=== PATIENT | female | born 2000 | race Caucasian/White ===

== ENCOUNTER 2019-12-05 18:39 | Emergency (ER) | payer OTHER, SELFPAY ==
--- NOTE | ~2019-12-05 | XR_ITS ---
EXAMINATION: XR foot LT min 3V DATE: 12/05/2019 19:06 INDICATION: Left foot pain TECHNIQUE: Dorsoplantar, lateral, and 2 oblique views of the left foot were obtained. COMPARISON: 07/03/2015 FINDINGS: There is no fracture, dislocation, or subluxation. 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 Bone alignment is normal. The soft tissues are unremarkable. IMPRESSION: 1. No acute osseous abnormality. Reviewed, dictated and finalized at location A.
[2019-12-05 18:46] VITALS: BP 121/64; PULSE 66; RESP 16; TEMP 36.9; O2SAT 99
--- NOTE | 2019-12-05 18:52 | ED.GENADULT ---
HPI - General Adult General Chief complaint: Extremity Injury, Lower Stated complaint: left foot injury Time Seen by Provider: 12/05/19 18:52 Source: patient and RN notes reviewed Limitations: no limitations History of Present Illness HPI narrative: 18-year-old female presents today with complaints of left foot pain with intermittent swelling for the past 7 days. Sally says dorsal LT foot started hurting after running on 11/28/19 without known injury. Ibuprofen, last on 12/04/19 without some relief. Hurts to bear weight. No radiation of pain. No numbness, tingling, or loss of mobility. Exacerbating factor applying weight. Denies inability to bear weight. Denies discoloration. Denies suspect foreign body. Denies being , LMP 3 years ago due to being on Depo Provera. The patient reports she have not been diagnosed with COVID-19. The patient reports she is not waiting for the results of a COVID-19 lab test. The patient reports she do not have fever, chills, weakness, or fatigue. The patient reports she do not have a new or worsening cough or shortness of breath. Denies chest pain. The patient reports she do not have any rhinorrhea, congestion, sore throat, loss of taste, nausea, vomiting, abdominal pain, and diarrhea. Tolerating po intake well. Denies recent traveling. Denies concerns for COVID-19 or exposures been home with limited outdoor exposure except for essential household needs, student, and return home. At this time, patient is not suspected of having COVID-19. Some parts of this dictation were generated by voice recognition software and may contain typographical and/or grammatical inaccuracies. Related Data Home Medications Medication Instructions Recorded Confirmed medroxyprogesterone 150 mg IM [id number] 12/05/19 12/05/19 mirtazapine 30 mg PO DAILY 12/05/19 12/05/19 Allergies Allergy/AdvReac Type Severity Reaction Status Date / Time No Known Drug Allergies Allergy Unknown Unknown Verified 12/05/19 18:53 Review of Systems Review of Systems: Narrative: CONSTITUTIONAL: Denies fever, chills, sweats. EYES: Denies visual changes, redness, discharge. ENT: Denies rhinorrhea, congestion, sore throat, otalgia. CARDIOVASCULAR: Denies chest pain, palpitations, edema. RESPIRATORY: Denies dyspnea, wheezing, cough. GASTROINTESTINAL: Denies abdominal pain, nausea, vomiting, diarrhea. GENITOURINARY: Denies dysuria, hematuria, abnormal discharge. SKIN: Denies rash or itching. MUSCULOSKELETAL: Denies acute back pain or myalgia. Complains of pain and intermittent swelling to left foot. NEUROLOGIC: Denies numbness or focal weakness. PSYCHIATRIC: Denies anxiety or depression. All other systems reviewed are negative, except as documented in HPI and below. [facility] Past Medical History Medical History (Updated 12/05/19 @ 19:31 by ISAAC Frankel) Anxiety Shortened frenulum of lip Surgical History Surgical History (Updated 12/05/19 @ 19:06 by ISAAC Frankel) No significant past surgical history Family History Family History (Updated 12/05/19 @ 19:07 by ISAAC Frankel) Father Diabetes mellitus Mother Hypertension Social History Social History (Updated 12/05/19 @ 19:53 by ISAAC Frankel) Smoking status: Never smoker Tobacco type: cigarettes Second hand tobacco smoke exposure: No Alcohol intake: current Substance use: never Living arrangements: with family Occupation/Education: student Gender identity (if verbalized by the patient): Female Sexual Orientation (if Verbalized by the Patient): Straight or Heterosexual Comments At time of signature, agree with nurse past medical, surgical, social, and family history. There is no relevant family history pertinent to the presenting complaint. Exam Narrative: Exam Narrative: GENERAL: This is a well-nourished, well-developed patient, in no apparent distress. Ambulates with a limp favoring left lower ex
== END 2019-12-05 19:35 | disposition home or self-care (01) ==
PROVIDERS: Emergency Provider Nurse Practitioner Family; PCP Family Medicine
DX: S96.912A Strain of unspecified muscle and tendon at ankle and foot level, left foot, initial encounter (principal); X58.XXXA Exposure to other specified factors, initial encounter
CPT/HCPCS: 73630; 99203; G0463

== ENCOUNTER 2020-05-18 18:34 | Emergency (ER) | payer OTHER, SELFPAY ==
--- NOTE | ~2020-05-18 | CT_ITS ---
EXAMINATION: CT abdomen pelvis w con DATE: 05/18/2020 19:49 INDICATION: Right lower quadrant pain TECHNIQUE: Computed tomography (CT) of the abdomen and pelvis was performed with 100 cc Omnipaque 350 intravenous contrast. The dose-length product was 224.09 mGy-cm. Automated exposure control and iter ative reconstruction technique were employed. COMPARISON: None. FINDINGS: Lung bases are unremarkable. Heart size normal. No significant pleural or pericardial effus ion. No significant vascular abnormality. No lymphadenopathy. Fatty infiltration of the liver. Gallbladder is contracted. The spleen, pancreas, adrenal glands and kidneys are unremarkable. Normal appendix. There is a 3 cm right ovarian cyst. Small amount of free f luid in the pelvis. No acute osseous abnormality. IMPRESSION: 1. 3 cm right ovarian cyst. Trace free fluid in the pelvis, physiologic. Reviewed, dictated and finalized at location A. OR REACTOR OPERATOR
[2020-05-18 18:51] VITALS: BP 104/62; PULSE 76; RESP 12; TEMP 36.3; O2SAT 100
--- NOTE | 2020-05-18 19:19 | ED.GENADULT ---
HPI - General Adult General Chief complaint: Abdominal Pain Stated complaint: abdominal pain Time Seen by Provider: 05/18/20 18:57 Source: patient and family Mode of arrival: ambulatory Limitations: no limitations History of Present Illness HPI narrative: Patient is a 19-year-old female who presents with periumbilical abdominal pain for the last day with some associated nausea patient denies similar occurrence in the past pain worsened today as a sharp stabbing pain patient denies vomiting urinary vaginal or bowel habit changes. Patient has not had anything for symptoms Related Data Home Medications Medication Instructions Recorded Confirmed medroxyprogesterone 150 mg IM [id number] 12/05/19 12/05/19 mirtazapine 30 mg PO DAILY 12/05/19 12/05/19 Allergies Allergy/AdvReac Type Severity Reaction Status Date / Time No Known Drug Allergies Allergy Unknown Unknown Verified 12/05/19 18:53 Review of Systems Review of Systems: All systems reviewed & are unremarkable except as noted in HPI and below PMFSH Past Medical History Medical History Anxiety Shortened frenulum of lip Surgical History Surgical History No significant past surgical history Family History Family History (Updated 12/05/19 @ 19:07 by ISAAC Frankel) Father Diabetes mellitus Mother Hypertension Social History Social History Smoking status: Never smoker Tobacco type: cigarettes Second hand tobacco smoke exposure: No Alcohol intake: current Substance use: never Gender identity (if verbalized by the patient): Female Exam Narrative: Exam Narrative: GENERAL: Well-appearing, well-nourished, and in no acute distress. HEAD: Normocephalic, atraumatic. EYES: PERRLA and EOMI. ENT: Nares clear, no rhinorrhea or epistaxis. Mucous membranes moist. CHEST: Clear to auscultation. No respiratory distress. No wheezes rales or rhonchi HEART: Regular rate and rhythm. No murmur heard. Normal peripheral pulses. ABDOMEN: Soft, periumbilical and right lower quadrant pain on palpation, nondistended EXTREMITIES: Normal range of motion. No edema. SKIN: Warm, dry, no rash. NEURO: No focal deficits. Alert and oriented x3. PSYCH: Normal mood and affect. Course Course Emergency Course: Patient evaluated in the emergency department with blood work and imaging found to have a right-sided ovarian cyst as the likely etiology of her discomfort could also still have other etiologies such as gastritis or other viral syndrome. Patient will follow with gynecology mother will help facilitate this patient provided with reasons to return and is felt appropriate for outpatient reevaluation Vital Signs Vital signs: Vital Signs Temperature 97.4 F L 05/18/20 18:51 Pulse Rate 76 05/18/20 18:51 Respiratory Rate 12 05/18/20 18:51 Blood Pressure 104/62 05/18/20 18:51 Pulse Oximetry 100 05/18/20 18:51 Temperature 97.4 F L 05/18/20 18:51 Pulse Rate 76 05/18/20 18:51 Respiratory Rate 12 05/18/20 18:51 Blood Pressure 104/62 05/18/20 18:51 Pulse Oximetry 100 05/18/20 18:51 Medical Decision Making [facility] Narrative Medical decision making narrative: Patient presented with abdominal pain nontoxic-appearing no distress at this time has been hydrated medicated in the emergency department found to have ovarian cyst will follow with gynecology for further evaluation has been provided with reasons to return Vital Signs Vital Signs: Vital Signs Temperature 97.4 F L 05/18/20 18:51 Pulse Rate 76 05/18/20 18:51 Respiratory Rate 12 05/18/20 18:51 Blood Pressure 104/62 05/18/20 18:51 Pulse Oximetry 100 05/18/20 18:51 Temperature 97.4 F L 05/18/20 18:51 Pulse Rate 76 05/18/20 18:51 Respiratory Rate 12 05/18/20 18:51 Blood Pressure 104/62 03/11
[2020-05-18 19:24] LABS: Basophils Percent Auto 0.3 % (0.2-1.2); Eosinophils Absolute Auto 0.1 K/mm3 (0-0.3); Eosinophils Percent Auto 0.5 % (0-4.4); Hematocrit 41.4 % (37.0-47.0); Hemoglobin 14.2 g/dL (12.0-15.0); Immature Granulocyte Absolute 0.03 K/mm3 (0.00-0.031); Immature Granulocyte Percent A 0.3 % (0-0.5); Lymphocytes Absolute Auto 1.05 K/mm3 (0.9-3.2); Mean Corpuscular HGB Conc 34.3 g/dl (32-36); Mean Corpuscular Hemoglobin 32.1 pg (26-34); Mean Corpuscular Volume 93.7 fl (80-100); Mean Platelet Volume 10.4 fl (7.4-10.4); Monocytes Absolute Auto 0.6 K/mm3 (0.1-0.6); Monocytes Percent Auto 5.6 % (2.6-8.5); Neutrophils Absolute Auto 8.7 K/mm3 (1.3-6.7); Neutrophils Percent Auto 83.3 % (45.5-73.1); Platelet Count Result 224 k/mm3 (150-375); Red Blood Count 4.42 M/mm3 (4.2-5.4); Red Cell Distribution Width 12.4 % (11.5-14.5); White Blood Count 10.5 K/mm3 (4.5-10.0)
[2020-05-18 19:25] LABS: Add Urine Microscopic? YES; Appearance Urine Clear (Clear); Bilirubin Urine Negative (Negative); Blood Urine 1+ (Negative); Color Urine Straw (Yellow); Glucose Urine UA Negative (Negative); Ketones Urine Negative (Negative); Leukocyte Esterase Ur Negative LEU/UL (Negative); Mucus Urine Rare /lpf; Nitrate Urine Negative (Negative); Protein Urine Negative (Negative); RBC Urine 0-2 /hpf (0-2); Specific Grav Ur 1.009 (1.001-1.035); Squamous Epithelial Cell Urine Rare /hpf (Few); Urobilinogen Urine Negative mg/dL (<2.0); WBC Urine 0-3 /hpf
[2020-05-18 19:30] VITALS: BP 103/53; PULSE 69; RESP 16; O2SAT 100
[2020-05-18] MEDS: SODIUM CHLORIDE 0.9% IV 1,000 ML 999 ML IV CONT (19:40)
[2020-05-18 19:43] LABS: Estimated CRCL calculation 118 ml/min; Estimated Glomerular Filt Rate > 60
[2020-05-18 20:00] VITALS: BP 116/54; PULSE 77; RESP 16; O2SAT 100
[2020-05-18] MEDS: ONDANSETRON INJ 4 MG/2 ML VIAL IV PUSH (20:00)
[2020-05-18] MEDS: HYOSCYAMINE SULFATE 0.125 MG TABLET PO (20:00)
[2020-05-18] MEDS: KETOROLAC 30 MG/ML VIAL (*BKC) IV PUSH (20:34)
== END 2020-05-18 20:30 | disposition home or self-care (01) ==
PROVIDERS: Emergency Provider Emergency Medicine; PCP Family Medicine
DX: N83.201 Unspecified ovarian cyst, right side (principal); F41.9 Anxiety disorder, unspecified
CPT/HCPCS: 36415; 74177; 81001; 81025; 85025; 85055; 96361; 96374; 96375; 99284; A9270; J0131; J1885; J2405; J7030; Q9967

== ENCOUNTER 2020-06-12 11:20 | Emergency (ER) | payer OTHER, SELFPAY ==
--- NOTE | ~2020-06-12 | XR_ITS ---
EXAMINATION: XR ankle LT min 3V DATE: 06/12/2020 11:47 INDICATION: Generalized left ankle pain post twisting injury one day prior TECHNIQUE: Anteroposterior, oblique, mortise, and lateral views of the left ankle were obtained. COMPARISON: Left foot radiograph dated 12/05/2019 FINDINGS: Alignment is normal. No fracture. Joint spaces are well maintained. No ankle joint effusion. The so ft tissues are unremarkable. IMPRESSION: 1. Negative left ankle radiographs. Reviewed, dictated and finalized at location B.
[2020-06-12 11:30] VITALS: BP 114/64; PULSE 80; RESP 16; TEMP 37.6; O2SAT 97
--- NOTE | 2020-06-12 11:35 | ED.LOWEXIN ---
HPI - Extremity Injury (Lower) General Chief Complaint: Extremity Injury, Lower Stated Complaint: left ankle injury Time Seen by Provider: 06/12/20 11:35 Source: patient and RN notes reviewed History of Present Illness HPI Narrative: Patient is a 19-year-old female who presents the urgent care with complaints of left ankle pain and swelling. Patient states that she slipped off a porch approximately 2 foot tall and onto the grass yesterday. Patient states that it is more painful to bear weight. Patient states she has been elevating and using ice. Denies of any old fractures to the left ankle. No other acute complaints. No acute distress noted. Patient aware of the plan of care. Some parts of this dictation were generated by voice recognition software and may contain typographical and/or grammatical inaccuracies. Related Data Home Medications Medication Instructions Recorded Confirmed medroxyprogesterone 150 mg IM [id number] 12/05/19 06/12/20 fluoxetine 20 mg PO DAILY 06/12/20 06/12/20 Allergies Allergy/AdvReac Type Severity Reaction Status Date / Time No Known Drug Allergies Allergy Unknown Unknown Verified 06/12/20 11:30 Review of Systems Review of Systems: Narrative: CONSTITUTIONAL: Denies fever, chills, or sweats. EYES: Denies visual changes, redness, or discharge. ENT: Denies rhinorrhea, congestion, sore throat, or otalgia. CARDIOVASCULAR: Denies chest pain, palpitations, or edema. RESPIRATORY: Denies cough or dyspnea. GASTROINTESTINAL: Denies abdominal pain, nausea, vomiting, or diarrhea. GENITOURINARY: Denies dysuria or hematuria. SKIN: Denies rash or itching. MUSCULOSKELETAL: Reports of left ankle pain and swelling NEUROLOGIC: Denies headache, numbness, or weakness. All other systems reviewed are negative, except as documented in HPI. [facility] Past Medical History Medical History Anxiety Shortened frenulum of lip Surgical History Surgical History No significant past surgical history Family History Family History (Updated 12/05/19 @ 19:07 by ISAAC Frankel) Father Diabetes mellitus Mother Hypertension Social History Social History Smoking status: Never smoker Tobacco type: cigarettes Second hand tobacco smoke exposure: No Alcohol intake: current Substance use: never Gender identity (if verbalized by the patient): Female Comments At the time of my signature, I reviewed and agree with the nursing past medical, surgical, social, and family history. There is no relevant family history pertinent to the patient complaint. Exam Narrative: Exam Narrative: GENERAL: This is a well-nourished, well-developed patient, in no apparent distress. HEAD: normocephalic, atraumatic. EYES: PERRL. Sclera clear/white. Vision is grossly intact. EARS: External ears normal NOSE: External nose normal with no obvious nasal discharge, nares without redness, no rhinorrhea. THROAT: Mucous membranes moist NECK: Neck supple SKIN: warm, intact with no suspicious lesions or rash, good texture and turgor. NEURO: awake, alert, and oriented to person, place and time. There were no obvious focal neurologic abnormalities. EXTREMITIES: Mild edema noted to the medial and lateral aspects of the left malleolus with mild tenderness. Range of motion limited due to pain. Pain exacerbated with weightbearing. Positive strong left pedal pulse with capillary refill less than 2 seconds. Course Vital Signs Vital signs: Vital Signs Temperature 99.6 F 06/12/20 11:30 Pulse Rate 80 06/12/20 11:30 Respiratory Rate 16 06/12/20 11:30 Blood Pressure 114/64 06/12/20 11:30 Pulse Oximetry 97 06/12/20 11:30 Temperature 99.6 F 06/12/20 11:30 Pulse Rate 80 06/12/20 11:30 Respiratory Rate 16 06/12/20 11:30 Blood Pressure 114/64
== END 2020-06-12 12:01 | disposition home or self-care (01) ==
PROVIDERS: Emergency Provider Nurse Practitioner Family; PCP Family Medicine
DX: S93.402A Sprain of unspecified ligament of left ankle, initial encounter (principal); S96.912A Strain of unspecified muscle and tendon at ankle and foot level, left foot, initial encounter; W17.89XA Other fall from one level to another, initial encounter; F41.9 Anxiety disorder, unspecified
CPT/HCPCS: 73610; 99213; G0463

== ENCOUNTER 2021-04-02 12:21 | Emergency (ER) | payer OTHER, MEDICAID, SELFPAY ==
--- NOTE | ~2021-04-02 | XR_ITS ---
XR hand LT min 3V 04/02/2021 13:16 Indication: Left hand pain Procedure: 3 views left hand Comparison: No prior studies for comparison. Findings: No fracture, subluxation or dislocation. There is anatomic alignment. No significant soft t issue abnormality. No radiopaque foreign bodies. Impression: 1: No acute bone or joint abnormality. Reviewed, dictated and finalized at location B. ISHER Impression: 1: No acute bone or joint abnormality.
--- NOTE | ~2021-04-02 | XR_ITS ---
XR foot RT min 3V, XR ankle RT min 3V 04/02/2021 13:15 (accession [id number]), 04/02/2021 13:16 (accession [id number]) Indication: Right foot and ankle pain after fall Procedure: 4 views right foot and 4 views right ankle Comparison: No prior studies for comparison. Findings: There is a nondisplaced transverse fracture proximal aspect of the third metatarsal. There are possible nondisplaced fractures involving the proximal aspect of the second and fourth metatarsal s. Lisfranc joint is intact. There is a fracture of the medial cuneiform. There is a fracture of the cuboid. Impression: 1: Nondisplaced fractures of the medial cuneiform, cuboid, base of the third metatarsal and possible nondisplaced fractures proximal aspect of the second and fourth metatarsals. Reviewed, dictated and finalized at location B. S COORDINATOR Impression: 1: Nondisplaced fractures of the medial cuneiform, cuboid, base of the third me tatarsal and possible nondisplaced fractures proximal aspect of the second and fourth metatarsals. Impression: 1: Nondisplaced fractures of the medial cuneiform, cuboid, base of the third me tatarsal and possible nondisplaced fractures proximal aspect of the second and fourth metatarsals.
--- NOTE | 2021-04-02 12:23 | ED.UPPEXIN ---
HPI - Extremity Injury (Upper) General Chief Complaint: Extremity Injury, Lower Stated Complaint: Fall Injury/Right Foot Injury/Left Hand Time Seen by Provider: 04/02/21 13:15 Source: patient and RN notes reviewed Mode of arrival: ambulatory Limitations: no limitations History of Present Illness MD complaint: injury to: left and hand Related Data Home Medications Medication Instructions Recorded Confirmed medroxyprogesterone 150 mg IM [id number] 12/05/19 04/02/21 fluoxetine 20 mg PO DAILY 06/12/20 04/02/21 Allergies Allergy/AdvReac Type Severity Reaction Status Date / Time No Known Drug Allergies Allergy Unknown Unknown Verified 04/02/21 12:49 Review of Systems Review of Systems: CONSTITUTIONAL: Denies malaise, chills, sweats, or fever. CARDIOVASCULAR: Denies chest pain, palpitations, or edema. RESPIRATORY: Denies cough or dyspnea. SKIN: Denies rash or itching, redness MUSCULOSKELETAL: Reports right foot pain, swelling, decreased sensation and range of motion. Reports left hand pain NEUROLOGIC: Denies numbness, weakness All systems reviewed & are unremarkable except as noted in HPI and below PMFSH Past Medical History Medical History Anxiety Shortened frenulum of lip Surgical History Surgical History No significant past surgical history Family History Family History (Updated 12/05/19 @ 19:07 by ISAAC Frankel) Father Diabetes mellitus Mother Hypertension Social History Social History Smoking status: Never smoker Tobacco type: cigarettes Second hand tobacco smoke exposure: No Alcohol intake: current Substance use: never Gender identity (if verbalized by the patient): Female Sexual Orientation (if Verbalized by the Patient): Straight or Heterosexual Comments At time of signature, agree with nursing past medical, surgical, social and family history. There is no relevant family history pertinent to the presenting complaint Exam Narrative: GENERAL: Well-appearing, well-nourished, and in no acute distress. HEAD: Normocephalic, atraumatic. EYES: PERRLA, conjunctivae clear NECK: Supple. CHEST: Speaks in full sentences. No respiratory distress. HEART: Regular rate and rhythm. Normal and equal peripheral pulses. EXTREMITIES: Left hand, wrist has normal grossly strength and sensation, grossly normal range of motion. No edema or ecchymosis. No open wounds, no skin tenting, no devitalized tissue or atrophy, no trophic changes, no obvious deformity, alignment normal, nearby joints and structures intact. Distal pulses palpable and equal bilaterally, skin warm, dry, pink. Capillary refill less than 3 seconds. EXTREMITIES: Right ankle, foot, digits have grossly normal strength and decreased distal sensation, limited range of motion. General foot gross edema, ecchymosis. 5/5 strength with digit flexion and extension. Decreased sensation to the digits. Generalized tenderness. No open wounds, no skin tenting, no devitalized tissue or atrophy, no trophic changes, no obvious deformity, alignment normal, nearby joints and structures intact. Distal pulses palpable and equal bilaterally, skin warm, dry, pink. Capillary refill less than 3 seconds. SKIN: Warm, dry, no rash. NEURO: Alert and oriented x3. PSYCH: Normal mood and affect Course Course Emergency Course: Patient is aware of diagnosis, understands and agrees to treatment plan. Anticipatory guidance given. Patient agrees to follow-up as directed and is aware of reasons to seek care at the emergency department. Portions of this record may have been created with voice recognition software Level of Care: Express Care Visit Vital Signs Vital signs: Vital Signs Temperature 98.3 F 04/02/21 12:38 Pulse Rate 64 04/02/21 12:38 Respiratory Rate 18 04/02/21 12:38 Blood Pr
[2021-04-02 12:38] VITALS: BP 130/85; PULSE 64; RESP 18; TEMP 36.8; O2SAT 98
== END 2021-04-02 14:25 | disposition home or self-care (01) ==
PROVIDERS: Emergency Provider Nurse Practitioner
DX: S92.244A Nondisplaced fracture of medial cuneiform of right foot, initial encounter for closed fracture (principal); S92.214A Nondisplaced fracture of cuboid bone of right foot, initial encounter for closed fracture; S92.334A Nondisplaced fracture of third metatarsal bone, right foot, initial encounter for closed fracture; S92.301A Fracture of unspecified metatarsal bone(s), right foot, initial encounter for closed fracture; X58.XXXA Exposure to other specified factors, initial encounter; F41.9 Anxiety disorder, unspecified
CPT/HCPCS: 29515; 73130; 73610; 73630; 99214; G0463

== ENCOUNTER 2022-07-28 15:10 | Emergency (ER) | payer OTHER, MEDICAID, SELFPAY ==
[2022-07-28 15:19] VITALS: BP 103/51; PULSE 82; RESP 16; TEMP 36.6; O2SAT 99
--- NOTE | 2022-07-28 15:35 | ED.EYEPROB ---
HPI - Eye Problem General Chief complaint: Eye Problems Stated complaint: poss pink eye Source: patient Mode of arrival: ambulatory Limitations: no limitations History of Present Illness HPI Narrative: Patient presents for evaluation of left eye irritation since yesterday. She reports redness, yellow/green drainage, blurred vision and irritation. Denies any other visual disturbance. She wears glasses but not contacts. 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 No fever, chills, sore throat, otalgia or respiratory symptoms. She is not taking any medications to assist with her symptoms. Related Data Home Medications Medication Instructions Recorded Confirmed fluoxetine 20 mg capsule 20 mg PO DAILY 06/12/20 04/02/21 dextroamphetamine-amphetamine ER 5 PO 07/28/22 mg 24hr capsule,extend release Allergies Allergy/AdvReac Type Severity Reaction Status Date / Time No Known Drug Allergies Allergy Unknown Unknown Verified 04/02/21 12:49 Review of Systems Review of Systems: CONSTITUTIONAL: Denies fever, chills, or sweats. EYES: Reports redness, irritation, blurred vision and yellow/green drainage from left eye ENT: Denies rhinorrhea, congestion, sore throat, or otalgia. CARDIOVASCULAR: Denies chest pain, palpitations, or edema. RESPIRATORY: Denies cough or dyspnea. GASTROINTESTINAL: Denies abdominal pain, nausea, vomiting, or diarrhea. GENITOURINARY: Denies dysuria or hematuria. SKIN: Denies rash or itching. MUSCULOSKELETAL: Denies back pain, joint pain, or myalgia. NEUROLOGIC: Denies headache, numbness, dizziness, or weakness. PSYCHIATRIC: Denies anxiety or depression. [facility] Past Medical History Medical History Anxiety Shortened frenulum of lip Surgical History Surgical History No significant past surgical history Family History Family History Father Diabetes mellitus Mother Hypertension Social History Social History Smoking status: Never smoker Tobacco type: cigarettes Second hand tobacco smoke exposure: No Alcohol intake: current Substance use: never Living arrangements: with family Occupation/Education: student Gender identity (if verbalized by the patient): Female Sexual Orientation (if Verbalized by the Patient): Straight or Heterosexual Exam Narrative: GENERAL: Well-appearing, well-nourished, and in no acute distress. HEAD: Normocephalic, atraumatic. EYES: Left conjunctival injection with thick yellow/green drainage present. PERRLA and EOMI. ENT: Nares clear, no rhinorrhea or epistaxis. Mucous membranes moist. Oropharynx without tonsillar hypertrophy exudate or other lesions. Bilateral TMs pearly wallis nonbulging NECK: Supple. No adenopathy or masses. No carotid bruits or JVD CHEST: Clear to auscultation. No respiratory distress. No wheezes rales or rhonchi HEART: Regular rate and rhythm. No murmur heard. Normal peripheral pulses. ABDOMEN: Soft, nontender, nondistended, normal active bowel sounds. EXTREMITIES: Normal range of motion. No edema. SKIN: Warm, dry, no rash. NEURO: No focal deficits. Alert and oriented x3. PSYCH: Normal mood and affect. Course Course Emergency Course: This is a 21-year-old female who presented for evaluation of left eye redness, irritation, drainage after recent pinkeye exposure. Exam is consistent with conjunctivitis. Will treat with erythromycin. Follow up with primary provider this week. Go to ER for worsening symptoms. Pt in agreement with plan of care. Level of Care: Express Care Visit Vital Signs Vital signs: Vital Signs Temperature 36.6 C 07/28/22 15:19 Pulse Rate 82 07/28/22 15:19 Respiratory Rate 16 07/28/22 15:19 Blood Pressure 103/51 L 07/28/22
== END 2022-07-28 15:44 | disposition home or self-care (01) ==
PROVIDERS: Emergency Provider Nurse Practitioner; PCP Hospitalist
DX: H10.32 Unspecified acute conjunctivitis, left eye (principal); F41.9 Anxiety disorder, unspecified
CPT/HCPCS: 99213; G0463

== ENCOUNTER 2023-03-11 18:20 | Emergency (ER) | payer OTHER, SELFPAY ==
[2023-03-11 18:34] VITALS: BP 115/62; PULSE 70; RESP 20; TEMP 37.2; O2SAT 99
--- NOTE | 2023-03-11 18:42 | ED.BACK ---
HPI - Back Pain/Injury General Chief Complaint: Back Pain/Injury Stated Complaint: Back Pain Time Seen by Provider: 03/11/23 18:43 Source: patient, RN notes reviewed and old records reviewed Mode of arrival: ambulatory Limitations: no limitations History of Present Illness HPI Narrative: 22-year-old female who presents to [facility] with complaints of lower back pain for the past year with increased symptoms for the past month. Patient reports that she did initially have back x-ray but has not had any further testing, has appointment with her doctor tomorrow. 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 Patient denies any burning or pain with urination, denies any CVA tenderness. Patient reports no radiation of pain to her legs, no difficulty with bowels or bladder and reports no tingling or numbness to her legs or feet. MD elicited complaint: back pain Onset (ago): year(s) (1 year with increase in past month) Pain scale (0-10): 8 Quality: throbbing Location: lumbar spine Work related injury: No Related Data Home Medications Medication Instructions Recorded Confirmed fluoxetine 20 mg capsule 20 mg PO DAILY 06/12/20 03/11/23 Allergies Allergy/AdvReac Type Severity Reaction Status Date / Time No Known Drug Allergies Allergy Unknown Unknown Verified 03/11/23 18:36 Review of Systems Review of Systems: CONSTITUTIONAL: Denies fever, chills, or sweats. CARDIOVASCULAR: Denies chest pain, palpitations, or edema. RESPIRATORY: Denies cough or dyspnea. GASTROINTESTINAL: Denies abdominal pain, nausea, vomiting, or diarrhea. GENITOURINARY: Denies dysuria or hematuria. SKIN: Denies rash or itching. MUSCULOSKELETAL: Reports lumbar back pain. No joint pain or myalgia. NEUROLOGIC: Denies headache, numbness, or weakness. All systems reviewed & are unremarkable except as noted in HPI and below PMFSH Past Medical History Medical History Anxiety Shortened frenulum of lip Surgical History Surgical History No significant past surgical history Family History Family History Father Diabetes mellitus Mother Hypertension Social History Social History Smoking status: Never smoker Tobacco type: cigarettes Second hand tobacco smoke exposure: No Alcohol intake: current Substance use: never Living arrangements: with family Occupation/Education: student Gender identity (if verbalized by the patient): Female Sexual Orientation (if Verbalized by the Patient): Straight or Heterosexual Comments At time of signature, agree with nursing past medical, surgical, social and family history. There is no relevant family history pertinent to the presenting complaint Exam Narrative: GENERAL: Well-appearing, well-nourished, and in no acute distress. HEAD: Normocephalic, atraumatic. EYES: PERRLA and EOMI. NECK: Supple. No lymphadenopathy. CHEST: Clear to auscultation. No respiratory distress. HEART: Regular rate and rhythm. Distal pulses palpable and equal, cap refill <3 seconds ABDOMEN: Soft, nontender, nondistended, normal active bowel sounds, no palpable or pulsatile masses. No CVA tenderness MUSCULOSKELETAL: Normal range of motion and strength in all extremities; 5/5 strength with hip flexion and extension, dorsiflexion and extension, knee flexion and extension, plantar flexion and extension. Normal sensation in dermatomal distributions with sensitivity to light touch and pain. No midline back tenderness to palpation. No paraspinal tenderness. Transfers from lying to sitting to standing.No radiation of pain down legs SKIN: Warm, dry, no rash. No ecchymosis, erythema, open wounds to back. NEURO: No focal deficits. Alert and oriented x3. Reflexes intact. Normal gait. PSYCH: N
== END 2023-03-11 19:20 | disposition home or self-care (01) ==
PROVIDERS: Emergency Provider Registered Nurse; PCP Hospitalist
DX: M54.50 Low back pain, unspecified (principal)
CPT/HCPCS: 81003; 87086; 87088; 99213; G0463

== ENCOUNTER 2023-03-17 12:49 | Emergency (ER) | payer OTHER, SELFPAY ==
--- NOTE | ~2023-03-17 | XR_ITS ---
EXAMINATION: XR lumbar spine 2-3V DATE: 03/17/2023 14:13 INDICATION: Low back pain. TECHNIQUE: 3 views of lumbar spine were obtained. COMPARISON: CT abdomen and pelvis 05/18/2020 FINDINGS: Bone alignment is normal. There is mild chronic anterior wedging of T11 and T12 vertebral b odies, likely physiologic. Intervertebral disc heights are normal. There is multilevel mild facet sagrario nt osteoarthritis. IMPRESSION: 1. Mild lumbar facet joint osteoarthritis. Reviewed, dictated and finalized at location A. [facility]
[2023-03-17 12:50] VITALS: BP 103/83; PULSE 73; RESP 16; TEMP 36.4; O2SAT 100
[2023-03-17] MEDS: KETOROLAC (*BKC) 60 MG/2 ML VIAL IM (13:49)
--- NOTE | 2023-03-17 14:35 | ED.BACK ---
HPI - Back Pain/Injury General Chief Complaint: Back Pain/Injury Stated Complaint: back pain Time Seen by Provider: 03/17/23 13:25 History of Present Illness HPI Narrative: Patient is a 22-year-old female who presents ER with low back pain. Going up bilaterally for the last 2 weeks. She has been on multiple doses of anti-inflammatories and steroids. She has been on muscle relaxers. She has been in contact with her PCP about getting an MRI and physical therapy. No saddle anesthesia or urinary/fecal retention. No known trauma. Symptoms persist. She has not yet had imaging. Occasionally patient has radiation down the right side of her leg. Related Data Home Medications Medication Instructions Recorded Confirmed fluoxetine 20 mg capsule 20 mg PO DAILY 06/12/20 03/11/23 Allergies Allergy/AdvReac Type Severity Reaction Status Date / Time No Known Drug Allergies Allergy Unknown Unknown Verified 03/11/23 18:36 Review of Systems Constitutional: Constitutional: Reports no additional constitutional complaints Gastrointestinal: Gastrointestinal: Reports no additional gastrointestinal complaints Genitourinary: Genitourinary: Reports no additional female genitourinary complaints Musculoskeletal: Musculoskeletal: Reports back pain, Denies arthralgias and Denies joint swelling Integumentary/Breasts: Skin/Breast: Reports system reviewed and no additional complaints, except as docu Neurologic: Denies focal weakness and Denies numbness PMFSH Past Medical History Medical History Anxiety Shortened frenulum of lip Surgical History Surgical History No significant past surgical history Family History Family History Father Diabetes mellitus Mother Hypertension Social History Social History Smoking status: Never smoker Tobacco type: cigarettes Second hand tobacco smoke exposure: No Alcohol intake: current Substance use: never Living arrangements: with family Occupation/Education: student Gender identity (if verbalized by the patient): Female Sexual Orientation (if Verbalized by the Patient): Straight or Heterosexual Exam Narrative: GENERAL: Well-appearing, well-nourished, and in no acute distress. HEAD: Normocephalic, atraumatic. CHEST: Clear to auscultation. No respiratory distress. HEART: Regular rate and rhythm. No murmur heard. Normal peripheral pulses. Back: No midline tenderness of the T/L-spine. There is paraspinal muscular tenderness in the SI region and into the gluteal region on the right side. EXTREMITIES: Normal range of motion. No edema. SKIN: Warm, dry, no rash. NEURO: Alert and oriented x3. PSYCH: Normal mood and affect. Course Course Emergency Course: Discussed conservative treatment. Recommend she speak with her PCP about physical therapy. Also discussed at some point she may require steroid injection to the area. Vital Signs Vital signs: Vital Signs Temperature 97.6 F 03/17/23 12:50 Pulse Rate 73 03/17/23 12:50 Respiratory Rate 16 03/17/23 12:50 Blood Pressure 103/83 03/17/23 12:50 Pulse Oximetry 100 03/17/23 12:50 Temperature 97.6 F 03/17/23 12:50 Pulse Rate 73 03/17/23 12:50 Respiratory Rate 16 03/17/23 12:50 Blood Pressure 103/83 03/17/23 12:50 Pulse Oximetry 100 03/17/23 12:50 MDM - Back Pain/Injury Lab Data Labs: UCG Bedside Result Negative Reference Range: Negative Discharge Plan Discharge Clinical Impression: Arthritis of low back Patient Disposition: Home, Self-Care Condition: Stable Instructions: Back Pain (ED), Lower Back Exercises (ED) Additional Instructions: Return to the ER if yo
== END 2023-03-17 14:53 | disposition home or self-care (01) ==
PROVIDERS: Emergency Provider Emergency Medicine; PCP Hospitalist
DX: M47.816 Spondylosis without myelopathy or radiculopathy, lumbar region (principal); F41.9 Anxiety disorder, unspecified
CPT/HCPCS: 72100; 81025; 96372; 99283; J1885